=== PATIENT | female | born 1975 | race Caucasian/White ===

== ENCOUNTER 2019-12-06 12:39 | Emergency (ER) | payer OTHER, SELFPAY ==
[2019-12-06 12:46] VITALS: BP 136/83; PULSE 87; RESP 18; TEMP 36.8; O2SAT 100
--- NOTE | 2019-12-06 13:07 | ED.SKABFB ---
HPI - Skin/Abscess/Foreign Bdy General Chief complaint: Skin/Abscess/Foreign Body Stated complaint: rash on face Time Seen by Provider: 12/06/19 12:55 Source: patient and RN notes reviewed Mode of arrival: ambulatory Limitations: no limitations History of Present Illness HPI narrative: Patient presents today complaining of swelling and redness to her nose that started yesterday. Patient has had similar symptoms twice in the past, diagnosed with cellulitis and has ended up hospitalized twice, both for multiple days. States clindamycin has not worked for her in the past and she had had to be on vancomycin. When asked why she sought treatment at urgent care instead of going to the hospital, she states that she was hoping she caught it soon enough to be treated outpatient this time. Patient is allergic to penicillins and sulfa. MD complaint: discoloration Related Data Allergies Allergy/AdvReac Type Severity Reaction Status Date / Time Sulfa (Sulfonamide Allergy Intermediate hives Verified 12/06/19 12:56 Antibiotics) Penicillins Allergy Unknown Rash Verified 12/06/19 12:56 Review of Systems Review of Systems: Narrative: CONSTITUTIONAL: Denies body aches, fever, chills, or sweats. EYES: Denies visual changes, redness, or discharge. ENT: Denies rhinorrhea, congestion, sore throat, or otalgia. + Swelling, and pain to the nose CARDIOVASCULAR: Denies chest pain, palpitations, or edema. RESPIRATORY: Denies cough or dyspnea. GASTROINTESTINAL: Denies abdominal pain, nausea, vomiting, or diarrhea. GENITOURINARY: Denies dysuria or hematuria. SKIN: Denies rash, itching, or wounds. MUSCULOSKELETAL: Denies back pain, joint pain, or myalgia. NEUROLOGIC: Denies headache, numbness, tingling, or weakness. PSYCH: Denies depression or anxiety. [facility] Past Medical History Medical History (Updated 12/07/19 @ 10:35 by Misti Soto, [employer]NAGER, ) Anxiety and depression Arthritis Hyperlipidemia Nose cellulitis Tubal infertility in female Surgical History Surgical History (Updated 02/11/19 @ 11:16 by Malia Weiss NP) H/O dilation and curettage Social History Social History (Updated 02/11/19 @ 11:16 by Malia Weiss NP) Smoking packs per day: 0.5 Smoking cigarettes per day: 10.0 Years smoked: 27 Smoking pack-years: 13.50 Smoking status: Current every day smoker Gender identity (if verbalized by the patient): Female Comments At time of signature, I have reviewed and agree with nursing past medical, surgical, social and family history unless otherwise noted. Please see nursing chart for further information. There is no relevant family history pertinent to the presenting complaint Exam Narrative: Exam Narrative: GENERAL: Well-appearing, well-nourished, and in no acute distress. HEAD: Normocephalic, atraumatic. EYES: EOMI. No redness or drainage. Conjunctivae normal. ENT: Mucous membranes pink and moist. External nose with mild erythema and induration. Tenderness to palpation of the left nasal bridge and tip. No fluctuance. NECK: Normal AROM. CHEST: No respiratory distress. EXTREMITIES: Normal range of motion. No edema. SKIN: Warm, dry, no rash. Capillary refill normal. Normal skin turgor. NEURO: No focal deficits. Alert and oriented x3. Gait steady. PSYCH: Normal affect. No signs of depression or anxiety. Course Course Emergency Course: Given her hx of hospitalization related to similar symptoms, will treat with doxycycline to cover for MRSA since she states Clinda has not been effective in the past and she has allergy to sulfa and PCN. Patient has been instructed to go to the ER immediately if symptoms continue to worsen Vital Signs Vital signs: Vital Signs Temperature 98.2 F 12/06/19 12:46 Pulse Rate 87 12/06/19 12:46 Respiratory Rate 18 12/06/19 12:46 Blood Pressure 136/83 12/06/19 12:46 Pulse Oximetry 100 12/06/19 12:46 Temperature 98.2 F 12/06/19 12:46 Pulse Rat
== END 2019-12-06 13:10 | disposition home or self-care (01) ==
PROVIDERS: Emergency Provider Nurse Practitioner
DX: J34.0 Abscess, furuncle and carbuncle of nose (principal); F17.210 Nicotine dependence, cigarettes, uncomplicated; M19.90 Unspecified osteoarthritis, unspecified site; E78.5 Hyperlipidemia, unspecified
CPT/HCPCS: 99213; G0463

== ENCOUNTER 2020-01-12 18:37 | Emergency (ER) | payer OTHER, SELFPAY ==
[2020-01-12 18:40] VITALS: BP 107/73; PULSE 114; RESP 16; TEMP 37.1; O2SAT 99
--- NOTE | 2020-01-12 18:47 | ED.SKABFB ---
HPI - Skin/Abscess/Foreign Bdy General Chief complaint: Skin/Abscess/Foreign Body Stated complaint: cellulitis on nose/face Time Seen by Provider: 01/12/20 18:49 Source: patient and RN notes reviewed History of Present Illness HPI narrative: Patient is a 44-year-old female who presents the urgent care with complaints of cellulitis to the nose and face. Patient states that she had it on 05 December and was treated our facility at that time. Patient states that she woke up this morning with just redness and is now has broken out to the full-blown cellulitis. Patient states she is taken ibuprofen for the pain. No other acute complaints. No acute distress noted. Patient aware of the plan of care. Some parts of this dictation were generated by voice recognition software and may contain typographical and/or grammatical inaccuracies. Related Data Home Medications Medication Instructions Recorded Confirmed No Home Medications 01/12/20 01/12/20 Allergies Allergy/AdvReac Type Severity Reaction Status Date / Time Sulfa (Sulfonamide Allergy Intermediate hives Verified 01/12/20 18:48 Antibiotics) Penicillins Allergy Unknown Rash Verified 01/12/20 18:48 Review of Systems Review of Systems: Narrative: CONSTITUTIONAL: Denies fever, chills, or sweats. EYES: Denies visual changes, redness, or discharge. ENT: Denies rhinorrhea, congestion, sore throat, or otalgia. CARDIOVASCULAR: Denies chest pain, palpitations, or edema. RESPIRATORY: Denies cough or dyspnea. GASTROINTESTINAL: Denies abdominal pain, nausea, vomiting, or diarrhea. GENITOURINARY: Denies dysuria or hematuria. SKIN: Reports of cellulitis on the face and nose MUSCULOSKELETAL: Denies back pain, joint pain, or myalgia. NEUROLOGIC: Denies headache, numbness, or weakness. All other systems reviewed are negative, except as documented in HPI. [facility] Past Medical History Medical History (Updated 01/12/20 @ 18:56 by COREY Elder) Anxiety and depression Arthritis Hyperlipidemia Nose cellulitis Tubal infertility in female Surgical History Surgical History (Updated 02/11/19 @ 11:16 by Malia Weiss NP) H/O dilation and curettage Social History Social History (Updated 02/11/19 @ 11:16 by Malia Weiss NP) Smoking packs per day: 0.5 Smoking cigarettes per day: 10.0 Years smoked: 27 Smoking pack-years: 13.50 Smoking status: Current every day smoker Gender identity (if verbalized by the patient): Female Comments At the time of my signature, I reviewed and agree with the nursing past medical, surgical, social, and family history. There is no relevant family history pertinent to the patient complaint. Exam Narrative: Exam Narrative: GENERAL: This is a well-nourished, well-developed patient, in no apparent distress. HEAD: normocephalic, atraumatic. EYES: PERRL. Sclera clear/white. Vision is grossly intact. EARS: External ears normal NOSE: External nose normal with no obvious nasal discharge, nares without redness, no rhinorrhea. THROAT: Mucous membranes moist NECK: Neck supple SKIN: Moderate erythema and mild edema noted to the nose as well as completely across the top of the nasal bridge NEURO: awake, alert, and oriented to person, place and time. There were no obvious focal neurologic abnormalities. EXTREMITIES: No clubbing, cyanosis, or edema. Course Vital Signs Vital signs: Vital Signs Temperature 98.7 F 01/12/20 18:40 Pulse Rate 114 H 01/12/20 18:40 Respiratory Rate 16 01/12/20 18:40 Blood Pressure 107/73 01/12/20 18:40 Pulse Oximetry 99 01/12/20 18:40 Temperature 98.7 F 01/12/20 18:40 Pulse Rate 114 H 01/12/20 18:40 Respiratory Rate 16 01/12/20 18:40 Blood Pressure 107/73 01/12/20 18:40 Pulse Oximetry 99 01/12/20 18:40 Reviewed MDM - Skin/Abscess/Foreign Bdy MDM Narrative Medical decision making narrative: Advised the patient to start wearing disposable masks and dispose of them as
== END 2020-01-12 19:00 | disposition home or self-care (01) ==
PROVIDERS: Emergency Provider Nurse Practitioner Family
DX: J34.0 Abscess, furuncle and carbuncle of nose (principal); F17.210 Nicotine dependence, cigarettes, uncomplicated; M19.90 Unspecified osteoarthritis, unspecified site; E78.5 Hyperlipidemia, unspecified
CPT/HCPCS: 99213; G0463

== ENCOUNTER 2020-01-21 16:06 | Emergency (ER) | payer OTHER, SELFPAY ==
[2020-01-21 16:20] VITALS: BP 125/81; PULSE 100; RESP 20; TEMP 37.1; O2SAT 100
[2020-01-21 16:32] VITALS: BP 125/81; PULSE 100; RESP 20; TEMP 37.1; O2SAT 100
--- NOTE | 2020-01-21 16:32 | ED.NECK ---
HPI - Neck Pain/Injury General Chief Complaint: Neck Pain/Injury Stated Complaint: neck pain Time Seen by Provider: 01/21/20 16:32 Source: patient and RN notes reviewed Mode of arrival: ambulatory Limitations: no limitations History of Present Illness HPI Narrative: 44-year-old female presents to express care with complaints of neck pain with stiffness to right side of neck, upper back and into posterior shoulder area since yesterday with increase discomfort today. Patient states that her friend was massaging her neck and then she like cracked her neck. Patient states that pain has increased with Motrin every 8 hours not helping her pain. Patient states that she has been using a heating pad with no decrease in pain or tightness. Patient states that pain is aching, and she rates it 8/, states history of bulging discs to her C5-6 area and has been to pain clinic and physical therapy in past. Patient denies any numbness or tingling to her upper arms or hands with strength equal bilaterally and full ROM of arms and stated increase in discomfort to neck with movement. MD complaint: neck pain Onset (ago): day(s) (1) Radiation: right lateral (posterior neck) Severity: moderate Severity scale (1-10): 8 Quality: aching Duration: progressively worsening Relieving factors: none Exacerbating factors: movement of neck Context: other (neck manupulation) Associated symptoms: none Treatments prior to arrival: ibuprofen and heat therapy Related Data Allergies Allergy/AdvReac Type Severity Reaction Status Date / Time Sulfa (Sulfonamide Allergy Intermediate hives Verified 01/21/20 16:30 Antibiotics) Penicillins Allergy Unknown Rash Verified 01/21/20 16:30 Review of Systems Review of Systems: Narrative: CONSTITUTIONAL: Denies fever, chills, or sweats. EYES: Denies visual changes, redness, or discharge. ENT: Denies rhinorrhea, congestion, sore throat, or otalgia. CARDIOVASCULAR: Denies chest pain, palpitations, or edema. RESPIRATORY: Denies cough or dyspnea. GASTROINTESTINAL: Denies abdominal pain, nausea, vomiting, or diarrhea. GENITOURINARY: Denies dysuria or hematuria. SKIN: Denies rash or itching. MUSCULOSKELETAL: positive for upper back pain and right lateral neck pain or myalgia. NEUROLOGIC: Denies headache, numbness, or weakness. PSYCHIATRIC: Positive for history of anxiety or depression. All systems reviewed & are unremarkable except as noted in HPI and below PMFSH Past Medical History Medical History (Updated 01/21/20 @ 17:31 by Malia Weiss NP) Anxiety and depression Arthritis Hyperlipidemia MRSA (methicillin resistant Staphylococcus aureus) infection Nose cellulitis Surgical History Surgical History (Updated 01/21/20 @ 17:11 by Malia Weiss NP) H/O dilation and curettage History of tubal ligation Hx of tonsillectomy Social History Social History Smoking packs per day: 0.5 Smoking cigarettes per day: 10.0 Years smoked: 27 Smoking pack-years: 13.50 Smoking status: Current every day smoker Gender identity (if verbalized by the patient): Female Comments At time of signature, agree with nursing past medical, surgical, social history. There is no relevant family history pertinent to the presenting complaint Exam Narrative: Exam Narrative: GENERAL: Well-appearing, well-nourished, and in mild distress. HEAD: Normocephalic, atraumatic. EYES: PERRLA and EOMI. ENT: Nares clear, no rhinorrhea or epistaxis. Mucous membranes moist.TM's normal with throat pink with no swelling or exudates NECK: Supple with increase pain with side movement.no lymphadenopathy CHEST: Clear to auscultation. No respiratory distress.SAO2 100% on room air HEART: Regular rate and rhythm. No murmur heard. Normal peripheral pulses. ABDOMEN: Soft, nontender, nondistended, normal active bowel sounds. EXTREMITIES: Normal range of motion with increase pain to neck, No edema.no tinglin
== END 2020-01-21 16:55 | disposition home or self-care (01) ==
PROVIDERS: Emergency Provider Registered Nurse
DX: S16.1XXA Strain of muscle, fascia and tendon at neck level, initial encounter (principal); X58.XXXA Exposure to other specified factors, initial encounter; F17.210 Nicotine dependence, cigarettes, uncomplicated; F41.9 Anxiety disorder, unspecified; F32.9 Major depressive disorder, single episode, unspecified; M19.90 Unspecified osteoarthritis, unspecified site; E78.5 Hyperlipidemia, unspecified; Z86.14 Personal history of Methicillin resistant Staphylococcus aureus infection
CPT/HCPCS: 99213; G0463